=== PATIENT | male | born 1980 | race Two or more races ===

== ENCOUNTER 2019-12-23 19:00 | Emergency (ER) | payer MEDICAID ==
[~2019-12-23] VITALS: Ht 177.8 cm; Wt 136.1 kg
[2019-12-23 21:49] VITALS: BP 108/60
[2019-12-23] MEDS ORDERED: methylPREDNISolone SOD SUCC 125 MG/2 ML VL IM ONE (22:00)
[2019-12-23] MEDS ORDERED: KETOROLAC TROMETH 60MG/2ML VIAL IM ONE (22:00)
== END 2019-12-23 23:22 | disposition home or self-care (01) ==
LOC: ER 19:00
DX: M54.16 Radiculopathy, lumbar region (principal); G58.8 Other specified mononeuropathies; Z90.89 Acquired absence of other organs
CPT/HCPCS: 72131; 96372; 99284; J1885; J2930